=== PATIENT | male | born 1970 | race Caucasian/White ===

== ENCOUNTER 2019-11-01 21:51 | Emergency (ER) | payer SELFPAY ==
[~2019-11-01] VITALS: Ht 160 cm; Wt 80.7 kg
[2019-11-01 22:05] VITALS: BP 147/71
--- NOTE | 2019-11-01 22:12 | NUR ---
PT AMBULATED TO BED #10
[2019-11-01] MEDS ORDERED: KETOROLAC 30 MG/ML VIAL IM ONE (22:45)
--- NOTE | 2019-11-01 22:47 | NUR ---
PT C/O BODYACHES AND SORE THROAT X 2-3 DAYS. DENIES COUGH OR SOB. LUNG SOUNDS CLEAR BILATERALLY, NO N/V/D. BED IN LOWEST POSITION AND SIDERAIL UP X 1 NKA
[2019-11-01 23:04] VITALS: BP 147/71
== END 2019-11-01 23:05 | disposition home or self-care (01) ==
LOC: MED 21:51
DX: B34.9 Viral infection, unspecified (principal); J45.909 Unspecified asthma, uncomplicated
CPT/HCPCS: 96372; 99283; J1885

== ENCOUNTER 2020-03-14 15:28 | Emergency (ER) | payer MEDICAID ==
[~2020-03-14] VITALS: Ht 165.1 cm; Wt 79.8 kg
[2020-03-14 15:32] VITALS: BP 160/102
--- NOTE | 2020-03-14 15:40 | NUR ---
Pt c/o increased blood pressure, headache, blurred vision since this morning. Denies N/V/D, CP, SOB, cough, fever. AAOX4 WITH EVEN AND STEADY GAIT; LUNGS CLEAR BL; HR EVEN AND REGULAR; PT DENIES ANY FEVER, CP, SOB, OR COUGH AT THIS TIME; PATIENT STATES PAIN OF 10/10 AT THIS TIME; VSS; PATIENT POSITIONED FOR COMFORT; HOB ELEVATED; BEDRAILS UP X1; BED DOWN. ER MD MADE AWARE OF PT STATUS.
[2020-03-14] MEDS ORDERED: diphenhydrAMINE 50 MG/ML VIAL IVP ONE (15:45)
[2020-03-14] MEDS ORDERED: BENAZEPRIL 10 MG TAB PO SCH (15:45)
[2020-03-14] MEDS ORDERED: KETOROLAC 30 MG/ML VIAL IVP ONE (15:45)
[2020-03-14 16:05] LABS: BASOPHILS % (AUTO) 0.3 % (0.0-2.0); EOSINOPHILS # (AUTO) 0.1 K/uL (0-0.4); EOSINOPHILS % (AUTO) 1.6 % (0.0-4.0); HEMATOCRIT 46.1 % (36-52); HEMOGLOBIN 15.7 g/dL (12.0-18.0); LYMPHOCYTES # (AUTO) 1.6 K/uL (2.0-11.5); LYMPHOCYTES % (AUTO) 20.3 % (20.5-51.1); MEAN CORPUSCULAR HEMOGLOBIN 31 pg (27-31); MEAN CORPUSCULAR HGB CONC 34 g/dL (33-37); MEAN CORPUSCULAR VOLUME 91.3 fL (80-94); MONOCYTES # (AUTO) 0.4 K/uL (0.8-1.0); MONOCYTES % (AUTO) 5.4 % (1.7-9.3); NEUTROPHILS # (AUTO) 5.6 K/uL (1.8-7.7); NEUTROPHILS % (AUTO) 72.4 % (42.2-75.2); PLATELET COUNT (AUTO) 190 K/uL (140-450); RED BLOOD CELL COUNT(AUTO) 5.04 MIL/uL (4.20-6.10); RED CELL DISTRIBUTION WIDTH 13.9 % (11.6-13.7); WHITE BLOOD COUNT (AUTO) 7.8 K/uL (4.8-10.8)
[2020-03-14 16:12] LABS: ANION GAP 10.9 (8-16); CARBON DIOXIDE 29.7 mmol/L (21-32); CREATININE 0.8 mg/dL (0.6-1.3); POTASSIUM 3.6 mmol/L (3.5-5.1)
[2020-03-14 16:47] VITALS: BP 125/75
--- NOTE | 2020-03-14 16:47 | NUR ---
Patient discharged with v/s stable. Written and verbal after care instructions given and explained. Patient verbalized understanding. Ambulatory with steady gait. All questions addressed prior to discharge. Advised to follow up with PMD.
== END 2020-03-14 16:47 | disposition home or self-care (01) ==
LOC: MED 15:28
DX: G44.209 Tension-type headache, unspecified, not intractable (principal); I10 Essential (primary) hypertension; J45.909 Unspecified asthma, uncomplicated
CPT/HCPCS: 36415; 80048; 84484; 85025; 93005; 96374; 96375; 99284; J1200; J1885

== ENCOUNTER 2020-09-07 06:51 | Emergency (ER) | payer SELFPAY ==
[~2020-09-07] VITALS: Ht 160 cm; Wt 77.1 kg
[2020-09-07 06:54] VITALS: BP 140/99
--- NOTE | 2020-09-07 06:54 | NUR ---
TO BED AMBULATORY
--- NOTE | 2020-09-07 07:04 | NUR ---
PT IS SITTING IN BED, NO DISTRESS, ENDORSEMENT GIVEN TO AM SHIFT RN.
--- NOTE | 2020-09-07 07:06 | NUR ---
49 y.o [place] male presents to the ED with headache starting yesterday. pain 10/10 feeling like tightness. pt reports of chills, nausea, denies SOB and c/p. pt reports not taking anything and that BP is high. PMH: hypertension, high cholesterol Allergies: nka
[2020-09-07] MEDS ORDERED: NACL 0.9% 1,000 ML IV ONE ×2 (07:30→07:35)
[2020-09-07] MEDS ORDERED: KETOROLAC 30 MG/ML VIAL IVP ONE (07:35)
[2020-09-07] MEDS ORDERED: diphenhydrAMINE 50 MG/ML VIAL IVP ONE (07:35)
[2020-09-07] MEDS ORDERED: METOCLOPRAMIDE 10 MG/2 ML INJ VIAL IVP ONE (07:35)
--- NOTE | 2020-09-07 08:02 | NUR ---
DETACHED PATIENT FROM IV TUBING
--- NOTE | 2020-09-07 08:03 | NUR ---
Note lynne in EDM - 09/07/20 at 0804 by PAUL Patient appears to be resting comfortably in bed semi del angel's position. Vital Signs within normal limits. no acute distress noted.
--- NOTE | 2020-09-07 08:04 | NUR ---
Patient appears to be resting comfortably in bed semi del angel's position. Vital Signs within normal limits. no acute distress noted. pain has decreased to a 5/10
--- NOTE | 2020-09-07 08:42 | NUR ---
Dr. Zazueta is reevaluating the patient at bedside.
[2020-09-07] MEDS ORDERED: ACET-10509 PO (08:45)
[2020-09-07 08:55] VITALS: BP 116/79
--- NOTE | 2020-09-07 08:55 | NUR ---
Patient discharged with v/s stable. PAIN 0/10 Written and verbal after care instructions given and explained. Patient alert, oriented and verbalized understanding of instructions. Ambulatory with steady gait. All questions addressed prior to discharge. ID band removed. Patient advised to follow up with PMD. Rx of TYLENOL EXTRA STRENGTH given. Patient educated on indication of medication including possible reaction and side effects. Opportunity to ask questions provided and answered.
--- NOTE | 2020-09-07 08:55 | NUR ---
Note messione in EDM - 09/07/20 at 0857 by [email or web address] Patient discharged with v/s stable. Written and verbal after care instructions given and explained. Patient alert, oriented and verbalized understanding of instructions. Ambulatory with steady gait. All questions addressed prior to discharge. ID band removed. Patient advised to follow up with PMD. Rx of TYLENOL EXTRA STRENGTH given. Patient educated on indication of medication including possible reaction and side effects. Opportunity to ask questions provided and answered.
== END 2020-09-07 08:55 | disposition home or self-care (01) ==
LOC: MED 06:51
DX: R51.9 Headache, unspecified (principal); I10 Essential (primary) hypertension; J45.909 Unspecified asthma, uncomplicated; Z79.899 Other long term (current) drug therapy
CPT/HCPCS: 96361; 96374; 96375; 99285; J1200; J1885; J2765; J7030

== ENCOUNTER 2023-02-21 16:25 | Emergency (ER) | payer SELFPAY ==
[~2023-02-21] VITALS: Ht 162.6 cm; Wt 81.6 kg
[~2023-02-21 16:25] MED LIST: ACET-10509 PO
[2023-02-21 17:10] VITALS: BP 151/96; PULSE 90; RESP 14; TEMP 98.1; O2SAT 98
[2023-02-21] MEDS ORDERED: KETOROLAC 30 MG/ML VIAL IM ONE (19:10)
[2023-02-21 19:55] VITALS: BP 151/96; PULSE 90; RESP 14; TEMP 98.1; O2SAT 98
[2023-02-21] MEDS ORDERED: IBUP-2213 PO (21:36)
== END 2023-02-21 21:41 | disposition home or self-care (01) ==
LOC: MED 16:25
DX: G44.209 Tension-type headache, unspecified, not intractable (principal); J45.909 Unspecified asthma, uncomplicated; I10 Essential (primary) hypertension; Z79.899 Other long term (current) drug therapy; Z79.1 Long term (current) use of non-steroidal anti-inflammatories (NSAID)
CPT/HCPCS: 70450; 96372; 99285; J1885

== ENCOUNTER 2023-06-09 17:21 | Emergency (ER) | payer MEDICAID ==
[~2023-06-09] VITALS: Ht 172.7 cm; Wt 77.1 kg
[~2023-06-09 17:21] MED LIST changes: +IBUP-2213 PO
[2023-06-09 17:27] VITALS: BP 153/110; PULSE 85; RESP 16; TEMP 98.4; O2SAT 98
[2023-06-09 18:04] VITALS: O2SAT 98
[2023-06-09] MEDS: KETOROLAC 30 MG/ML VIAL IM ONE (18:33)
[2023-06-09] MEDS: ACETAMINOPHEN EXTRA STRENGTH 500 MG TAB PO ONE (18:35)
[2023-06-09] MEDS: ONDANSETRON 4 MG ODT PO ONE (18:36)
[2023-06-09 18:38] LABS: BASOPHILS % (AUTO) 0.2 % (0.0-2.0); EOSINOPHILS # (AUTO) 0.3 K/uL (0-0.4); EOSINOPHILS % (AUTO) 2.9 % (0.0-4.0); HEMATOCRIT 41.8 % (36-52); HEMOGLOBIN 14.7 g/dL (12.0-18.0); LYMPHOCYTES # (AUTO) 1.7 K/uL (2.0-11.5); LYMPHOCYTES % (AUTO) 20.2 % (20.5-51.1); MEAN CORPUSCULAR HEMOGLOBIN 32 pg (27-31); MEAN CORPUSCULAR HGB CONC 35 g/dL (33-37); MEAN CORPUSCULAR VOLUME 90.2 fL (80-94); MONOCYTES # (AUTO) 0.6 K/uL (0.8-1.0); MONOCYTES % (AUTO) 6.5 % (1.7-9.3); NEUTROPHILS # (AUTO) 6.1 K/uL (1.8-7.7); NEUTROPHILS % (AUTO) 70.2 % (42.2-75.2); PLATELET COUNT (AUTO) 190 K/uL (140-450); RED BLOOD CELL COUNT(AUTO) 4.64 MIL/uL (4.20-6.10); WHITE BLOOD COUNT (AUTO) 8.6 K/uL (4.8-10.8)
[2023-06-09 18:43] LABS: FLU A ANTIGEN negative (NEGATIVE); FLU B ANTIGEN negative (NEGATIVE)
[2023-06-09 18:46] LABS: ANION GAP 9.9 (8-16); CALCIUM 8.8 mg/dL (8.5-10.1); CARBON DIOXIDE 30.5 mmol/L (21-32); CREATININE 0.7 mg/dL (0.6-1.3); POTASSIUM 3.4 mmol/L (3.5-5.1)
[2023-06-09] MEDS: NACL 0.9% 1,000 ML IV ONE (19:24)
[2023-06-09 19:31] VITALS: O2SAT 98
[2023-06-09 22:02] VITALS: BP 142/99; PULSE 83; RESP 17; TEMP 97.9; O2SAT 97
== END 2023-06-09 22:02 | disposition home or self-care (01) ==
LOC: MED 17:21
DX: I10 Essential (primary) hypertension (principal); R51.9 Headache, unspecified; R11.0 Nausea; Z20.822 Contact with and (suspected) exposure to COVID-19; J45.909 Unspecified asthma, uncomplicated; E78.00 Pure hypercholesterolemia, unspecified; Z79.899 Other long term (current) drug therapy; Z79.1 Long term (current) use of non-steroidal anti-inflammatories (NSAID)
CPT/HCPCS: 36415; 71045; 80048; 83880; 84484; 85025; 87426; 87804; 93005; 96360; 96372; 99285; J1885; J7030; Q0162

== ENCOUNTER 2023-09-06 05:35 | Emergency (ER) | payer MEDICAID, OTHER ==
[~2023-09-06] VITALS: Ht 157.5 cm; Wt 80.7 kg
[2023-09-06 05:51] VITALS: BP 153/86; PULSE 82; RESP 18; TEMP 97.6; O2SAT 99
[2023-09-06] MEDS: PROCHLORPERAZINE 10 MG/2 ML VIAL IM ONE (06:27)
[2023-09-06] MEDS: KETOROLAC 30 MG/ML VIAL IM ONE (06:28)
[2023-09-06 06:38] LABS: BASOPHILS % (AUTO) 0.5 % (0.0-2.0); EOSINOPHILS # (AUTO) 0.4 K/uL (0-0.4); EOSINOPHILS % (AUTO) 5.5 % (0.0-4.0); HEMATOCRIT 43.8 % (36-52); HEMOGLOBIN 15.2 g/dL (12.0-18.0); LYMPHOCYTES # (AUTO) 2.7 K/uL (2.0-11.5); LYMPHOCYTES % (AUTO) 34.6 % (20.5-51.1); MEAN CORPUSCULAR HEMOGLOBIN 31 pg (27-31); MEAN CORPUSCULAR HGB CONC 35 g/dL (33-37); MEAN CORPUSCULAR VOLUME 89.5 fL (80-94); MONOCYTES # (AUTO) 0.7 K/uL (0.8-1.0); MONOCYTES % (AUTO) 8.8 % (1.7-9.3); NEUTROPHILS % (AUTO) 50.6 % (42.2-75.2); PLATELET COUNT (AUTO) 191 K/uL (140-450); RED CELL DISTRIBUTION WIDTH 13.1 % (11.6-13.7); WHITE BLOOD COUNT (AUTO) 7.9 K/uL (4.8-10.8)
[2023-09-06 07:11] LABS: CALCIUM 8.8 mg/dL (8.5-10.1); CARBON DIOXIDE 29.8 mmol/L (21-32); CREATININE 0.7 mg/dL (0.6-1.3); POTASSIUM 3.8 mmol/L (3.5-5.1)
[2023-09-06] MEDS ORDERED: ACET-10509 PO (08:20)
[2023-09-06 08:44] VITALS: BP 135/88; PULSE 78; RESP 16; TEMP 98; O2SAT 99
== END 2023-09-06 08:44 | disposition home or self-care (01) ==
LOC: MED 05:35
DX: G43.909 Migraine, unspecified, not intractable, without status migrainosus (principal); J45.909 Unspecified asthma, uncomplicated; I10 Essential (primary) hypertension; Z86.79 Personal history of other diseases of the circulatory system; Z79.1 Long term (current) use of non-steroidal anti-inflammatories (NSAID)
CPT/HCPCS: 36415; 70450; 80048; 85025; 96372; 99285; J0780; J1885; Q0163

== ENCOUNTER 2023-09-15 19:50 | Emergency (ER) | payer OTHER ==
[~2023-09-15] VITALS: Ht 154.9 cm; Wt 72.6 kg
[2023-09-15 20:13] VITALS: BP 151/95; PULSE 84; RESP 16; TEMP 96.9; O2SAT 98
[2023-09-15] MEDS: METOCLOPRAMIDE 10 MG/2 ML INJ VIAL IM ONE (20:38)
[2023-09-15] MEDS: KETOROLAC 30 MG/ML VIAL IM ONE (20:40)
[2023-09-15 21:44] VITALS: BP 133/94; PULSE 79; RESP 18; TEMP 97.9; O2SAT 98
== END 2023-09-15 21:44 | disposition home or self-care (01) ==
LOC: MED 19:50
DX: G44.209 Tension-type headache, unspecified, not intractable (principal); R11.0 Nausea; I10 Essential (primary) hypertension; Z79.1 Long term (current) use of non-steroidal anti-inflammatories (NSAID)
CPT/HCPCS: 96372; 99284; J1885; J2765